=== PATIENT | male | born 1950 | race Caucasian/White ===

== ENCOUNTER 2018-03-25 19:16 | Emergency (ER) | payer MEDICARE ==
[2018-03-25 19:46] LABS: BASOPHILS % (AUTO) 0.7 % (0.0-5.0); EOSINOPHILS % (AUTO) 1.8 % (0.0-8.0); HEMATOCRIT 39.4 % (42-54); LYMPHOCYTES % (AUTO) 6.8 % (21.0-51.0); MEAN CORPUSCULAR HEMOGLOBIN 31.8 pg (27.0-33.0); MEAN CORPUSCULAR HGB CONC 34.4 g/dL (32.0-36.0); MEAN CORPUSCULAR VOLUME 92.4 fL (79-99); MONOCYTES % (AUTO) 7.5 % (3.0-13.0); NEUTROPHILS % (AUTO) 83.2 % (40.0-77.0); PLATELET COUNT (AUTO) 196 K/uL (130-400); RED BLOOD CELL COUNT(AUTO) 4.27 MIL/uL (4.50-6.20); RED CELL DISTRIBUTION WIDTH 14.5 % (11.0-15.5); WHITE BLOOD COUNT (AUTO) 6.4 K/uL (4.8-10.8)
[2018-03-25] MEDS ORDERED: ONDANSETRON HCL 4 MG/2 ML VIAL ONE (20:03)
[2018-03-25 20:04] LABS: CREATININE 0.9 mg/dL (0.5-1.5)
[2018-03-25] MEDS ORDERED: HYOSCYAMINE SULFATE 0.125 MG TAB.SUBL SL ONE (20:04)
[2018-03-25 20:14] LABS: ALBUMIN 3.8 g/dL (3.5-5.0); BILIRUBIN,TOTAL 0.6 mg/dL (0.2-1.0); TOTAL PROTEIN, SERUM 6.3 g/dL (6.0-8.3)
[2018-03-25 21:10] LABS: APPEARANCE,URINE Clear (CLEAR); BILIRUBIN,URINE Negative (NEGATIVE); COLOR,URINE Yellow (YELLOW); GLUCOSE, URINE (UA) Negative (NEGATIVE); KETONES,URINE 15 mg/dL (NEGATIVE); LEUKOCYTE ESTERASE ,URINE Negative (NEGATIVE); NITRATE,URINE Negative (NEGATIVE); OCCULT BLOOD,URINE Negative (NEGATIVE); PROTEIN,URINE Negative (NEGATIVE)
== END 2018-03-25 22:17 | disposition home or self-care (01) ==
LOC: EDH 19:16
DX: K52.9 Noninfective gastroenteritis and colitis, unspecified (principal); R10.84 Generalized abdominal pain; Z98.890 Other specified postprocedural states
CPT/HCPCS: 36415; 74176; 80053; 81003; 82150; 82550; 83690; 84484; 85025; 93005; 96374; 99284; J2405

== ENCOUNTER 2020-05-24 16:52 | Inpatient (IN) | payer MEDICARE ==
[~2020-05-24] VITALS: Ht 177.8 cm; Wt 62.9 kg
[2020-05-24 18:15] LABS: BASOPHILS % (AUTO) 0.2 % (0.0-5.0); EOSINOPHILS % (AUTO) 0.5 % (0.0-8.0); HEMATOCRIT 37.7 % (42-54); LYMPHOCYTES % (AUTO) 1.6 % (21.0-51.0); MEAN CORPUSCULAR HEMOGLOBIN 31.3 pg (27.0-33.0); MEAN CORPUSCULAR HGB CONC 33.4 g/dL (32.0-36.0); MEAN CORPUSCULAR VOLUME 93.5 fL (79-99); MONOCYTES % (AUTO) 6.3 % (3.0-13.0); NEUTROPHILS % (AUTO) 90.9 % (40.0-77.0); PLATELET COUNT (AUTO) 228 K/uL (130-400); RED BLOOD CELL COUNT(AUTO) 4.03 MIL/uL (4.50-6.20); RED CELL DISTRIBUTION WIDTH 12.6 % (11.0-15.5); WHITE BLOOD COUNT (AUTO) 16.6 K/uL (4.8-10.8)
[2020-05-24] MEDS ORDERED: FAMOTIDINE 20MG VIAL IV ONE (18:18)
[2020-05-24] MEDS ORDERED: 0.9%NACL 1000ML 1,000 ML IV ONE ×2 (18:19→20:46)
[2020-05-24 18:25] LABS: CREATININE 1.2 mg/dL (0.5-1.5); POTASSIUM 3.5 mmol/L (3.5-5.1)
[2020-05-24 18:30] LABS: ALBUMIN 3.6 g/dL (3.5-5.0); BILIRUBIN,TOTAL 0.6 mg/dL (0.2-1.0); TOTAL PROTEIN, SERUM 6.3 g/dL (6.0-8.3)
[2020-05-24 18:32] LABS: INR 1.18 (0.85-1.15); PROTHROMBIN TIME 12.7 SEC (9.6-11.6)
[2020-05-24 18:33] LABS: PARTIAL THROMBOPLASTIN TIME 22.9 SEC (26.3-35.5)
[2020-05-24 21:25] LABS: HEMATOCRIT 35.1 % (42-54)
[2020-05-25] VITALS (20 sets, daily range): BP systolic 94–131; BP diastolic 46–67
[2020-05-25] MEDS ORDERED: PEG 3350/NA SULF,BICARB,CL/KCL 4000 ML SOLN PO ONE (01:46)
[2020-05-25] MEDS ORDERED: ONDANSETRON 4MG INJ IV PRN (02:30)
[2020-05-25] MEDS ORDERED: ACETAMINOPHEN 325 MG TAB PO PRN ×2 (02:30)
[2020-05-25 08:27] LABS: BASOPHILS % (AUTO) 0.2 % (0.0-5.0); EOSINOPHILS % (AUTO) 0.2 % (0.0-8.0); HEMATOCRIT 31.3 % (42-54); LYMPHOCYTES % (AUTO) 4.3 % (21.0-51.0); MEAN CORPUSCULAR HEMOGLOBIN 31.2 pg (27.0-33.0); MEAN CORPUSCULAR HGB CONC 33.5 g/dL (32.0-36.0); MEAN CORPUSCULAR VOLUME 92.9 fL (79-99); MONOCYTES % (AUTO) 6.3 % (3.0-13.0); NEUTROPHILS % (AUTO) 88.5 % (40.0-77.0); PLATELET COUNT (AUTO) 208 K/uL (130-400); RED BLOOD CELL COUNT(AUTO) 3.37 MIL/uL (4.50-6.20); RED CELL DISTRIBUTION WIDTH 12.8 % (11.0-15.5); WHITE BLOOD COUNT (AUTO) 10.7 K/uL (4.8-10.8)
[2020-05-25 08:36] LABS: INR 1.21 (0.85-1.15)
[2020-05-25 08:41] LABS: ALBUMIN 3.2 g/dL (3.5-5.0); BILIRUBIN,TOTAL 0.6 mg/dL (0.2-1.0); CREATININE 0.9 mg/dL (0.5-1.5); POTASSIUM 3.7 mmol/L (3.5-5.1); TOTAL PROTEIN, SERUM 5.9 g/dL (6.0-8.3)
[2020-05-25] MEDS: PANTOPRAZOLE 40 MG/VIAL IVP SCH ×2 (09:00→20:39)
[2020-05-25] MEDS: FAMOTIDINE 20MG VIAL IV SCH ×2 (09:00→20:39)
[2020-05-25] MEDS: METOPROLOL SUCCINATE 50 MG TAB.SR.24H PO SCH (09:00)
[2020-05-25 09:13] LABS: CHOLESTEROL 113 mg/dL (<200); HDL CHOLESTEROL 48 mg/dL (29-71); LDL DIRECT 54 mg/dL (0-99); TRIGLYCERIDES 53 mg/dL (30-200)
[2020-05-25] MEDS ORDERED: PROPOFOL 10 MG/ML 20ML VIAL IV ONE (11:48)
[2020-05-25] MEDS ORDERED: LIDOCAINE HCL-MPF 2% 5ML VIAL ONE (11:48)
[2020-05-25] MEDS ORDERED: ENOXAPARIN SODIUM 1 MG/KG SQ SCH (12:00)
[2020-05-25] MEDS: ASCORBIC ACID 500 MG TAB PO SCH (12:00)
[2020-05-25] MEDS: CLOPIDOGREL 75MG TAB PO SCH (12:00)
[2020-05-25] MEDS: CILOSTAZOL 100 MG TAB PO SCH ×2 (12:00→20:11)
[2020-05-25] MEDS: FERROUS SULFATE 325 MG TABLET.DR PO SCH (12:00)
[2020-05-25] MEDS ORDERED: EPHEDRINE SULFATE 50 MG/ML AMPULE ONE (12:05)
[2020-05-25 13:59] LABS: HEMATOCRIT 26.7 % (42-54)
[2020-05-25] MEDS: WARFARIN SODIUM 5 MG TAB PO SCH (14:05)
[2020-05-25] MEDS: HEPARIN 25,000 UNITS/250ML D5W 250 ML IV SCH (14:21)
[2020-05-25] MEDS ORDERED: HEPARIN 5,000 UNIT VIAL IV ONE (15:00)
[2020-05-25] MEDS: ATORVASTATIN 40 MG TABLET PO SCH (20:11)
[2020-05-25 20:36] LABS: HEMATOCRIT 23.6 % (42-54)
[2020-05-25] MEDS ORDERED: EPOETIN ALFA-EPBX (NON-ESRD) 10,000 UNIT/ML VIAL SQ SCH (23:00)
[2020-05-25] MEDS ORDERED: WARFARIN SODIUM 5 MG TAB PO SCH (23:00)
[2020-05-25 23:46] LABS: % IRON SATURATION 8.2 % (30-44)
[2020-05-26] VITALS (7 sets, daily range): BP systolic 90–99; BP diastolic 49–53
[2020-05-26] MEDS ORDERED: IRON SUCROSE COMPLEX 100 MG in 0.9%NACL 50ML 50 ML IV SCH ×4 (08:00)
[2020-05-26 08:16] LABS: BASOPHILS % (AUTO) 0.5 % (0.0-5.0); EOSINOPHILS % (AUTO) 2.3 % (0.0-8.0); HEMATOCRIT 24.4 % (42-54); LYMPHOCYTES % (AUTO) 10.5 % (21.0-51.0); MEAN CORPUSCULAR HEMOGLOBIN 31.6 pg (27.0-33.0); MEAN CORPUSCULAR VOLUME 92.8 fL (79-99); MONOCYTES % (AUTO) 7.4 % (3.0-13.0); NEUTROPHILS % (AUTO) 78.8 % (40.0-77.0); PLATELET COUNT (AUTO) 135 K/uL (130-400); RED BLOOD CELL COUNT(AUTO) 2.63 MIL/uL (4.50-6.20); RED CELL DISTRIBUTION WIDTH 12.7 % (11.0-15.5); WHITE BLOOD COUNT (AUTO) 3.9 K/uL (4.8-10.8)
[2020-05-26 08:32] LABS: CREATININE 0.8 mg/dL (0.5-1.5); POTASSIUM 3.3 mmol/L (3.5-5.1)
[2020-05-26 08:39] LABS: INR 1.17 (0.85-1.15); PROTHROMBIN TIME 12.6 SEC (9.6-11.6)
[2020-05-26] MEDS: PANTOPRAZOLE 40 MG/VIAL IVP SCH ×2 (09:00→20:58)
[2020-05-26] MEDS: METOPROLOL SUCCINATE 50 MG TAB.SR.24H PO SCH (09:00)
[2020-05-26] MEDS ORDERED: KCL 20 MEQ ERTAB PO PRN (09:30)
[2020-05-26] MEDS ORDERED: POTASSIUM CHLORIDE 20MEQ/100ML 100 ML IV PRN (09:30)
[2020-05-26] MEDS: FAMOTIDINE 20MG VIAL IV SCH ×2 (10:39→20:13)
[2020-05-26] MEDS: CLOPIDOGREL 75MG TAB PO SCH (10:41)
[2020-05-26] MEDS: ASCORBIC ACID 500 MG TAB PO SCH (10:44)
[2020-05-26] MEDS: FERROUS SULFATE 325 MG TABLET.DR PO SCH (10:44)
[2020-05-26] MEDS: CILOSTAZOL 100 MG TAB PO SCH ×2 (10:45→20:13)
[2020-05-26] MEDS: POTASSIUM CHLORIDE 10% ELIXIR 20 MEQ/15 ML UDCUP PO PRN ×3 (10:47→23:27)
[2020-05-26] MEDS ORDERED: COMPOUND IV MISC 1 EACH IVSOLN MISC PRN (12:45)
[2020-05-26] MEDS: WARFARIN SODIUM 5 MG TAB PO SCH (16:01)
[2020-05-26] MEDS: HEPARIN 25,000 UNITS/250ML D5W 250 ML IV SCH (16:08)
[2020-05-26] MEDS: ATORVASTATIN 40 MG TABLET PO SCH (20:13)
[2020-05-27 04:00] VITALS: BP 96/48
[2020-05-27 05:45] LABS: BASOPHILS % (AUTO) 0.6 % (0.0-5.0); EOSINOPHILS % (AUTO) 2.5 % (0.0-8.0); HEMATOCRIT 23.8 % (42-54); LYMPHOCYTES % (AUTO) 14.6 % (21.0-51.0); MEAN CORPUSCULAR HEMOGLOBIN 30.2 pg (27.0-33.0); MEAN CORPUSCULAR HGB CONC 33.2 g/dL (32.0-36.0); MEAN CORPUSCULAR VOLUME 90.8 fL (79-99); NEUTROPHILS % (AUTO) 71.9 % (40.0-77.0); PLATELET COUNT (AUTO) 137 K/uL (130-400); RED BLOOD CELL COUNT(AUTO) 2.62 MIL/uL (4.50-6.20); RED CELL DISTRIBUTION WIDTH 12.3 % (11.0-15.5); WHITE BLOOD COUNT (AUTO) 3.6 K/uL (4.8-10.8)
[2020-05-27 05:54] LABS: CREATININE 0.8 mg/dL (0.5-1.5); POTASSIUM 3.6 mmol/L (3.5-5.1)
[2020-05-27 06:00] LABS: INR 1.28 (0.85-1.15); PROTHROMBIN TIME 13.6 SEC (9.6-11.6)
[2020-05-27 06:01] LABS: PARTIAL THROMBOPLASTIN TIME 66.7 SEC (26.3-35.5)
[2020-05-27] MEDS: POTASSIUM CHLORIDE 10% ELIXIR 20 MEQ/15 ML UDCUP PO PRN (06:18)
[2020-05-27 08:00] VITALS: BP 109/61
[2020-05-27] MEDS ORDERED: WARF-57 PO (08:32)
[2020-05-27] MEDS ORDERED: METO25TA3 PO (08:33)
[2020-05-27] MEDS ORDERED: ATOR40TA69 PO (08:33)
[2020-05-27] MEDS ORDERED: CILO50TA PO (08:34)
[2020-05-27] MEDS ORDERED: CLOP75TA14 PO (08:34)
[2020-05-27] MEDS ORDERED: PANT40TA55 PO (08:35)
[2020-05-27] MEDS ORDERED: FERS325 PO (08:35)
[2020-05-27] MEDS ORDERED: ENOX60DI7 SQ (08:35)
[2020-05-27] MEDS ORDERED: PANTOPRAZOLE 40 MG TAB DR PO SCH (09:56)
[2020-05-27] MEDS: METOPROLOL SUCCINATE 50 MG TAB.SR.24H PO SCH (09:58)
[2020-05-27] MEDS: CILOSTAZOL 100 MG TAB PO SCH (09:58)
[2020-05-27] MEDS: ASCORBIC ACID 500 MG TAB PO SCH (09:58)
[2020-05-27] MEDS: FERROUS SULFATE 325 MG TABLET.DR PO SCH (09:59)
[2020-05-27] MEDS: CLOPIDOGREL 75MG TAB PO SCH (09:59)
[2020-05-27] MEDS: FAMOTIDINE 20MG VIAL IV SCH (10:04)
[2020-05-27] MEDS ORDERED: ENOXAPARIN SODIUM 40 MG/0.4 ML SYRINGE SQ ONE (10:34)
== END 2020-05-27 12:00 | disposition home or self-care (01) | DRG 920 ==
LOC: EDH 16:52 → EDHIP 05-25 01:45 → OBSVTOIN 05-25 01:45 → 3DH 05-25 09:23
PROVIDERS: ADMIT Internal Medicine; ATTEND Internal Medicine
PROC: 0DCH8ZZ Extirpation of Matter from Cecum, Via Natural or Artificial Opening Endoscopic (ICD-10-PCS; principal; 2020-05-25)
DX: K91.840 Postprocedural hemorrhage of a digestive system organ or structure following a digestive system procedure (principal); K63.3 Ulcer of intestine; I95.1 Orthostatic hypotension; I73.9 Peripheral vascular disease, unspecified; I10 Essential (primary) hypertension; E78.5 Hyperlipidemia, unspecified; F17.210 Nicotine dependence, cigarettes, uncomplicated; Y83.8 Other surgical procedures as the cause of abnormal reaction of the patient, or of later complication, without mention of misadventure at the time of the procedure; Z79.01 Long term (current) use of anticoagulants; Z95.2 Presence of prosthetic heart valve; Z79.899 Other long term (current) drug therapy; Z89.512 Acquired absence of left leg below knee; Z79.02 Long term (current) use of antithrombotics/antiplatelets
CPT/HCPCS: 36415; 45378; 80048; 80053; 80061; 83540; 83550; 84484; 85014; 85018; 85025; 85610; 85730; 86850; 86900; 86901; 93005; C9113; G0378; J1644; J1650; J1756; J2704; J3490; J7030